=== PATIENT | male | born 1975 | race Two or more races ===

== ENCOUNTER 2018-09-10 05:49 | Emergency (ER) | payer MEDICAID ==
[~2018-09-10] VITALS: Ht 185.4 cm; Wt 115.7 kg
[2018-09-10 06:17] VITALS: BP 143/88
== END 2018-09-10 08:54 | disposition home or self-care (01) ==
LOC: ER 05:49
DX: H66.92 Otitis media, unspecified, left ear (principal); K04.7 Periapical abscess without sinus